=== PATIENT | female | born 1990 | race Hispanic/Latino ===

== ENCOUNTER 2023-09-26 11:58 | Emergency (ER) | payer OTHER ==
[2023-09-26 13:24] LABS: BASO # 0.1 10^3/uL (0.0-0.2); BASO % 0.7 % (0.0-1.0); EOS # 0.2 10^3/uL (0.0-0.5); EOS % 2.3 % (0.0-3.0); HEMATOCRIT 39.8 % (36.0-47.0); HEMOGLOBIN 12.8 g/dl (12.0-15.5); LYMPH # 4.3 10^3/uL (1.5-5.0); LYMPH % 42.8 % (24.0-44.0); MEAN CORPUSCULAR HEMOGLOBIN 28.6 pg (27.0-33.0); MEAN CORPUSCULAR HGB CONC 32.2 g/dl (32.0-36.5); MEAN CORPUSCULAR VOLUME 88.8 fl (80.0-96.0); MONO # 0.5 10^3/uL (0.0-0.8); MONO % 4.8 % (2.0-8.0); NEUTROPHILS # 4.9 10^3/uL (1.5-8.5); NEUTROPHILS % 48.9 % (36.0-66.0); PLATELET COUNT, AUTOMATED 214 10^3/uL (150-450); RED BLOOD COUNT 4.48 10^6/uL (4.00-5.40); WHITE BLOOD COUNT 10.1 10^3/uL (4.0-10.0)
[2023-09-26 13:51] LABS: CK-MB VALUE MASS < 1.0 NG/ML (<3.6); LIPASE 39 U/L (12-53)
[2023-09-26 13:53] LABS: ALBUMIN 3.7 G/DL (3.2-5.2); ALKALINE PHOSPHATASE 71 U/L (46-116); ALT/SGPT 29 U/L (7.0-40); AST/SGOT 14 U/L (<34); BILIRUBIN,DIRECT 0.1 MG/DL (<0.4); BILIRUBIN,TOTAL 0.4 MG/DL (0.3-1.2); BLOOD UREA NITROGEN 13 MG/DL (9-23); CARBON DIOXIDE LEVEL 24 MMOL/L (20-31); CHLORIDE LEVEL 109 MMOL/L (98-107); CPK CREATINE PHOSPHOKINASE 169 U/L (34-145); CREATININE FOR GFR 0.79 MG/DL (0.55-1.30); GLOMERULAR FILTRATION RATE > 60.0 (>60); GLUCOSE, FASTING 86 MG/DL (60-100); MB/CK RELATIVE INDEX 0.59 (< OR =4); POTASSIUM SERUM 4.4 MMOL/L (3.5-5.1); SODIUM LEVEL 140 MMOL/L (136-145); TOTAL PROTEIN 6.5 G/DL (5.7-8.2)
[2023-09-26 13:54] LABS: THYROID STIMULATING HORMONE 2.339 uIU/ML (0.55-4.78)
[2023-09-26] MEDS ORDERED: no med (14:19)
[2023-09-26 14:45] VITALS: BP 113/64; TEMP 97.2; O2SAT 99
[2023-09-26] MEDS ORDERED: PANT40TA29 PO (14:45)
[2023-09-26] MEDS ORDERED: HOLTER MONITOR XX (14:46)
== END 2023-09-26 15:23 | disposition home or self-care (01) ==
LOC: M ED 11:58 → EDBD 11:58 → M ED 15:23
DX: R00.2 Palpitations (principal); K21.9 Gastro-esophageal reflux disease without esophagitis; Z79.899 Other long term (current) drug therapy

== ENCOUNTER → 2023-09-28 | Outpatient (CLI) | payer OTHER ==
[~2023-09-28] MED LIST: HOLTER MONITOR XX; PANT40TA29 PO; no med
== END ==
LOC: M EKG 09:07
PROVIDERS: ATTEND Emergency Medicine
DX: R00.2 Palpitations (principal); R07.89 Other chest pain

== ENCOUNTER 2023-11-08 08:27 | Emergency (ER) | payer OTHER ==
[~2023-11-08] VITALS: Ht 160 cm; Wt 76.9 kg
[2023-11-08] MEDS: IBUPROFEN 600MG TAB PO ONE (09:17)
[2023-11-08 10:20] VITALS: BP 100/60; TEMP 98; O2SAT 100
== END 2023-11-08 10:30 | disposition home or self-care (01) ==
LOC: M ED 08:27
DX: S93.401A Sprain of unspecified ligament of right ankle, initial encounter (principal); W10.9XXA Fall (on) (from) unspecified stairs and steps, initial encounter; Y92.009 Unspecified place in unspecified non-institutional (private) residence as the place of occurrence of the external cause; Y93.9 Activity, unspecified; Y99.9 Unspecified external cause status

== ENCOUNTER 2024-01-29 17:29 | Emergency (ER) | payer OTHER ==
[~2024-01-29] VITALS: Ht 160 cm; Wt 80.6 kg
[2024-01-29] MEDS: ONDANSETRON 4MG ORAL DISINTEGRATING TAB PO ONE (20:23)
[2024-01-29] MEDS: ACETAMINOPHEN 500 MG TAB PO ONE (20:24)
[2024-01-29 21:22] VITALS: BP 111/66; TEMP 98.6; O2SAT 100
[2024-01-29] MEDS: KETOROLAC 60MG 2ML VIAL IM ONE (21:37)
[2024-01-29] MEDS ORDERED: ONDA-282 PO (22:15)
== END 2024-01-29 22:22 | disposition home or self-care (01) ==
LOC: M ED 17:29
DX: B34.8 Other viral infections of unspecified site (principal); Z79.899 Other long term (current) drug therapy
CPT/HCPCS: 81025; 87486; 87581; 87633; 87798; 87880; 96372; 99284; J1885

== ENCOUNTER 2025-03-07 02:46 | Emergency (ER) | payer OTHER ==
[~2025-03-07] VITALS: Ht 160 cm; Wt 72.7 kg
[~2025-03-07 02:46] MED LIST changes: +ONDA-282 PO
[2025-03-07 03:54] LABS: BASO # 0.1 10^3/uL (0.0-0.2); BASO % 0.5 % (0.0-1.0); EOS # 0.2 10^3/uL (0.0-0.5); EOS % 1.2 % (0.0-3.0); LYMPH # 5.5 10^3/uL (1.5-5.0); LYMPH % 39.7 % (24.0-44.0); MONO # 0.5 10^3/uL (0.0-0.8); MONO % 3.9 % (2.0-8.0); NEUTROPHILS # 7.5 10^3/uL (1.5-8.5); NEUTROPHILS % 53.9 % (36.0-66.0); PLATELET COUNT, AUTOMATED 201 10^3/uL (150-450)
[2025-03-07 04:24] LABS: CALCIUM LEVEL 8.6 MG/DL (8.5-10.1); CARBON DIOXIDE LEVEL 25 MMOL/L (20-31); CHLORIDE LEVEL 105 MMOL/L (98-107); CREATININE FOR GFR 0.78 MG/DL (0.55-1.30); GLOMERULAR FILTRATION RATE > 90.0 (>60); POTASSIUM SERUM 3.7 MMOL/L (3.5-5.1); SODIUM LEVEL 140 MMOL/L (136-145)
[2025-03-07 04:38] LABS: APPEARANCE, URINE CLEAR (CLEAR); BACTERIA, URINE AUTO 1+ (NEGATIVE); BILIRUBIN, URINE AUTO NEGATIVE (NEGATIVE); BLOOD, URINE BLOOD 2+ (NEGATIVE); GLUCOSE, URINE (UA) AUTO NEGATIVE (NEGATIVE); KETONE, URINE AUTO NEGATIVE (NEGATIVE); LEUKOCYTE ESTERASE, URINE AUTO NEGATIVE (NEGATIVE); MUCUS, URINE SMALL (NEGATIVE); NITRITE, URINE AUTO NEGATIVE (NEGATIVE); PROTEIN, URINE AUTO NEGATIVE (NEGATIVE); RBC, URINE AUTO 1 /HPF (0-3); SPECIFIC GRAVITY URINE AUTO 1.010 (1.002-1.035); SQUAMOUS EPITHELIAL CELL UR AU 1 /HPF (0-6); UROBILINOGEN, URINE AUTO 0.2 mg/dL (0.0-2.0); WBC, URINE AUTO 1 /HPF (0-3)
[2025-03-07] MEDS: ONDANSETRON 4MG ORAL DISINTEGRATING TAB PO ONE (06:54)
[2025-03-07] MEDS: ACETAMINOPHEN 500 MG TAB PO ONE (06:54)
[2025-03-07] MEDS ORDERED: CEPH500C PO (07:23)
[2025-03-07 07:30] VITALS: BP 106/61; TEMP 97.8; O2SAT 100
== END 2025-03-07 07:39 | disposition home or self-care (01) ==
LOC: M ED 02:46
DX: O26.851 Spotting complicating pregnancy, first trimester (principal); O23.41 Unspecified infection of urinary tract in pregnancy, first trimester; Z79.2 Long term (current) use of antibiotics; Z79.899 Other long term (current) drug therapy; Z3A.01 Less than 8 weeks gestation of pregnancy

== ENCOUNTER → 2025-03-17 | Outpatient (CLI) | payer OTHER ==
[~2025-03-17] MED LIST changes: +CEPH500C PO
== END ==
LOC: M LAB 10:50
PROVIDERS: ATTEND Registered Nurse
DX: O26.851 Spotting complicating pregnancy, first trimester (principal); Z3A.00 Weeks of gestation of pregnancy not specified